=== PATIENT | female | born 1990 | race Caucasian/White ===

== ENCOUNTER 2018-01-20 13:20 | Day surgery (SDC) | payer OTHER ==
[2018-01-10 14:45] VITALS: BMI 24.4
[2018-01-20] MEDS ORDERED: PROPOFOL 20 ML ONE (13:25)
[2018-01-20] MEDS ORDERED: MIDAZOLAM HCL 2 MG/2 ML SINGLE DOSE VIAL ONE (13:25)
[2018-01-20] MEDS ORDERED: EPINEPHrine 1:1,000 1 MG/1 ML - 30ML VIAL (INJECTION) ONE (13:43)
[2018-01-20] MEDS ORDERED: BUPIVACAINE HCL/PF 2.5 MG/ML - 30 ML VIAL IJ ONE (13:43)
--- NOTE | 2018-01-20 13:49 | OP ---
Operative Note - Note: Operative Date: 01/20/18 Pre-Operative Diagnosis: Medial meniscal tear Operation: knee arthroscopy with partial medial menisectomy Post-Operative Diagnosis: Same as Pre-op Surgeon: Carlos Toussaint Anesthesiologist/[employer] ATTACHER: Brooklyn Herrera Anesthesia: General Operative Report Dictated: Yes
[2018-01-20] MEDS ORDERED: DEXAMETHASONE SOD PHOSPHATE 4 MG/1 ML VIAL ONE (14:17)
[2018-01-20] MEDS ORDERED: ONDANSETRON 4 MG/2 ML VIAL IVPUSH PRN (14:19)
[2018-01-20] MEDS ORDERED: oxyCODONE HCL 5 MG TABLET PO PRN (14:19)
[2018-01-20] MEDS ORDERED: ceFAZolin SODIUM 1 GM VIAL ONE (14:24)
[2018-01-20] MEDS ORDERED: LACTATED RINGERS SOLUTION 1,000 ML IV SCH (14:30)
[2018-01-20] MEDS ORDERED: BUPIVACAINE HCL/PF 0.25% (2.5MG/ML) 10 ML VIAL IJ ONE (14:30)
[2018-01-20] MEDS ORDERED: ONDANSETRON 4 MG/2 ML VIAL ONE (15:41)
[2018-01-20 17:15] VITALS: TEMP 97.8
--- NOTE | 2018-01-20 17:48 | OP ---
DATE OF OPERATION: 01/20/2018 PREOPERATIVE DIAGNOSIS: Left knee lateral meniscal tear. POSTOPERATIVE DIAGNOSIS: Left knee lateral meniscal tear. PROCEDURE: Left knee arthroscopy with partial lateral meniscectomy. SURGEON: Carlos Metcalf MD ANESTHESIA: General. POSTOPERATIVE CONDITION: Stable. INDICATIONS: This is a pleasant 28-year-old lady who has been suffering from lateral knee pain. MRI demonstrated lateral meniscal tear. Treatment options including nonoperative versus operative management were reviewed. Operative risks were reviewed in detail, including bleeding, infection, neurovascular injury, need for further surgery, postoperative pain, and stiffness, progression of osteoarthritis. We discussed medical risks such as heart attack, stroke, DVT, PE, and . We addressed the used of perioperative antibiotic and DVT prophylaxis. I have reviewed the postoperative rehabilitation course. All the patient's questions and concerns were addressed. She elected to proceed. DESCRIPTION OF PROCEDURE: The patient was brought to the operating room where general anesthesia was administered. The left lower extremity was then prepped and draped in the usual sterile fashion. A preoperative dose of antibiotics was given, and the usual timeout procedure was performed. The left knee was then marked out. The portal sites were injected subcutaneously with 0.25% Marcaine. A lateral portal was now established with an 11 blade. The arthroscope was passed into the patellofemoral joint. She had flat patellar and trochlear morphology. There was some slight . I passed the arthroscope down into the notch demonstrated intact ACL and PCL. The arthroscope was passed into the medial compartment. Here, medial portal was established under spinal needle localization. The medial compartment of the knee was examined. The articular surface was unremarkable. The meniscal cartilage was unremarkable. The meniscus was probed and found to be . The arthroscope was not passed into the lateral compartment. Here, a tear was noted at the anterior horn of the lateral meniscus with a flap which was blocking visualization of the rest of the joint. Utilizing meniscal biter and a shaver, the flap was debrided down to a stable base. This revealed a radial tear into the body of the lateral meniscus. Some mild articular was noted on the femoral and tibial sides. The radial tear was now debrided. Upon debriding the inner border, it was apparent that there was a horizontal cleavage tear component to the tear as well. Again utilizing the meniscal biters and a shaver, this was debrided down to a stable base. The lower leaflet was removed while the upper leaflet was maintained. At this point, the excess fluid was withdrawn from the knee. The portals were sutured using 3-0 nylon. Sterile dressings were placed. The patient was extubated and transferred to the recovery room in stable condition. CARLOS EMTCALF M.D. MASOOD/[id number]
[2018-01-20 18:15] VITALS: BP 117/70; PULSE 76
== END 2018-01-20 17:55 | disposition home or self-care (01) ==
LOC: FASU 13:20
PROVIDERS: ATTEND Orthopaedic Surgery Sports Medicine
PROC: 0SBD4ZZ Excision of Left Knee Joint, Percutaneous Endoscopic Approach (ICD-10-PCS; principal; 2018-01-20 14:31)
DX: S83.282A Other tear of lateral meniscus, current injury, left knee, initial encounter (principal); X58.XXXA Exposure to other specified factors, initial encounter; Y93.9 Activity, unspecified; Y92.9 Unspecified place or not applicable
CPT/HCPCS: 84703; 94760